=== PATIENT | female | born 1965 | race Caucasian/White ===

== ENCOUNTER 2018-04-21 07:22 | Outpatient (CLI) | payer BC ==
--- NOTE | 2018-04-21 09:18 | CT ---
CT ABDOMEN WITH AND WITHOUT CONTRAST: DATE: 04/21/2018. HISTORY: A 52-year-old female. Right upper quadrant pain: R10.11. Esophagitis: K20.9. Gastritis: K29.70. TECHNIQUE: This was ordered specifically as an abdomen with and without contrast. No pelvis. COMPARISON: None. TECHNIQUE: Oral contrast: Readi-Cat 2. IV contrast: 100 mL of Isovue 370. Precontrast scan and portal venous phase scan, from lung bases to iliac crests. Pelvis was not included. FINDINGS: The visualized upper portions of the colon demonstrate no findings of colitis or obvious large constr icting lesion. No small bowel dilation. No obvious pathology of the stomach identified. There are no renal calculi. No abdominal aortic aneurysm. Adrenals, pancreas, kidneys, liver, and spleen are normal. No signs of acute cholecystitis. Lung bases are clear. IMPRESSION: Normal appearance of upper and mid abdominal contents. POS: CET
[2018-04-21] MEDS ORDERED: Iopamidol 370 76% 100 ML VIAL ONE (13:20)
== END 2018-04-21 07:23 | disposition home or self-care (01) ==
LOC: CT 07:22
PROVIDERS: ATTEND Internal Medicine
DX: R10.11 Right upper quadrant pain (principal); K20.9 Esophagitis, unspecified; K29.70 Gastritis, unspecified, without bleeding
CPT/HCPCS: 74170